=== PATIENT | female | born 1970 | race Caucasian/White ===

== ENCOUNTER 2022-08-24 08:47 | Inpatient (IN) | payer MEDICAID, MEDICARE ==
[~2022-08-24] VITALS: Ht 167.6 cm; Wt 48.1 kg
[2022-08-24] MEDS ORDERED: TDAP DIPH,PERTUSS,TET VAC/PF 0.5 ML DISP.SYRIN IM ONE ×2 (09:00→10:27)
[2022-08-24 09:31] LABS: MEAN CORPUSCULAR HEMOGLOBIN 29.8 uug (24.7-32.8); MEAN CORPUSCULAR VOLUME 90.8 fL (75.5-95.3); PLATELET COUNT (AUTO) 386 K/uL (179-408)
--- NOTE | 2022-08-24 10:00 | NUR ---
Jones not needed, pt can use bed kraft. Also no thermometer on foleys in-stock, so says jones is not necessary.
[2022-08-24 10:02] LABS: ALANINE AMINOTRANSFERASE 21 U/L (14-59); ALKALINE PHOSPHATASE 105 U/L (50-136); ASPARTATE AMINOTRANSFERASE 20 U/L (15-37); BILIRUBIN,TOTAL 0.3 mg/dL (0.2-1.0); TOTAL PROTEIN, SERUM 6.3 g/dL (6.4-8.2)
[2022-08-24 10:06] LABS: CARBON DIOXIDE 31 mmol/L (21-32); CHLORIDE 102 mmol/L (98-107); CREATININE 0.4 mg/dL (0.6-1.3); GLUCOSE 118 mg/dL (74-106); UREA NITROGEN, BLOOD 14 mg/dL (7-18)
--- NOTE | 2022-08-24 10:15 | NUR ---
pt was covered in her own feces and had very old bandage on right lower leg which had melded with pt's pants. Pt's clothes had to be cut off/thrown away and pt was cleaned. Bandage removed exposing several old wounds with geenish-john tint, other skin pale. Additionally, open/raw epidermal surface wounds exposed pt's right medial thigh, left medial thigh, and left medial leg near knee. ER MD and admitting MD aware.
[2022-08-24 10:21] LABS: POTASSIUM 2.5 mmol/L (3.5-5.1)
[2022-08-24 10:23] LABS: BILIRUBIN,DIRECT < 0.1 mg/dL (0.0-0.2)
[2022-08-24 10:41] LABS: *BILIRUBIN,URIN NEGATIVE (NEGATIVE); *BLOOD, URINE NEGATIVE (NEGATIVE); *COLOR,URINE YELLOW (YELLOW); *KETONES,URINE NEGATIVE (NEGATIVE); *UROBILINOGEN,URINE 0.2 E.U./dl (NORMAL); LEUKOCYTE ESTERASE ,URINE 1+ (NEGATIVE); NITRITE, URINE NEGATIVE (NEGATIVE); UGLUCOSE NEGATIVE (NEGATIVE)
[2022-08-24] MEDS ORDERED: POTASSIUM CHLORIDE 50 ML ONE ×2 (10:41→11:16)
[2022-08-24 11:11] LABS: *CLARITY,URINE SLIGHTLY CLOUDY (CLEAR)
[2022-08-24] MEDS: POTASSIUM CHLORIDE 50 ML IV SCH ×2 (11:15→19:51)
[2022-08-24] MEDS ORDERED: CEFTRIAXONE 1 G in IV DEXTROSE 5% 50 ML IV ONE (11:30)
--- NOTE | 2022-08-24 11:50 | NUR ---
Dafne Nichole placed on pt and turned on
[2022-08-24] MEDS ORDERED: HYDROCODONE/APAP 5-325MG TABLET PO PRN (12:45)
[2022-08-24] MEDS ORDERED: MAGNESIUM HYDROXIDE 30 ML LIQUID UDC PO PRN (12:45)
[2022-08-24] MEDS ORDERED: ENOXAPARIN SODIUM 40 MG/0.4 ML DISP.SYRIN SQ SCH (12:45)
[2022-08-24] MEDS ORDERED: ONDANSETRON 4 MG/2 ML VIAL IV PRN (12:45)
[2022-08-24 12:46] LABS: RBC,URINE 0-3 /HPF (0-3)
[2022-08-24 12:47] LABS: BACTERIA,URINE FEW /HPF (NONE SEEN); MUCUS,URINE FEW /LPF (0-FEW); SQUAMOUS EPITHELIAL CELL,UR FEW /HPF (NONE SEEN)
[2022-08-24] MEDS ORDERED: VANCOMYCIN IV 1,000 MG in IV DEXTROSE 5% 250 ML IV ONE (13:15)
[2022-08-24] MEDS ORDERED: CEFTRIAXONE /D5W 50ML IVPB **ER PYXIS IV ONE (13:52)
--- NOTE | 2022-08-24 15:35 | NUR ---
Finished infusing 2nd 10meq bag of K+. Started Rocephin.
[2022-08-24] MEDS ORDERED: VANCOMYCIN IV 200 ML ONE (15:42)
[2022-08-24] MEDS ORDERED: ENOXAPARIN SODIUM 40 MG/0.4 ML DISP.SYRIN SQ ONE (15:42)
--- NOTE | 2022-08-24 16:12 | NUR ---
infusion of rocephin finished.
[2022-08-24 16:17] LABS: CARBON DIOXIDE 32 mmol/L (21-32); CHLORIDE 106 mmol/L (98-107); CREATININE 0.4 mg/dL (0.6-1.3); GLUCOSE 57 mg/dL (74-106); POTASSIUM 2.9 mmol/L (3.5-5.1); UREA NITROGEN, BLOOD 10 mg/dL (7-18)
--- NOTE | 2022-08-24 18:36 | NUR ---
Contacted Dr. Alvarenga and informed him that rectal temp is now 98.4. Doctor ordered downgrade "admit to tele" and administer additional 20meq of Potassium (KCl) IV.
--- NOTE | 2022-08-24 21:05 | NUR ---
Report given to Mai SCHUMACHER Tele.
[2022-08-24 21:20] VITALS: BP 103/57
--- NOTE | 2022-08-24 21:30 | NUR ---
PATIENT RECEIVED VIA GURNEY FROM ER.PATIENT ALERT ,AWAKE AND ABLE TO GIVEN INFORMATION . ADMITTED PATIENT AND DATA GIVEN BY PATIENT . PATIENT CAME WITH MULTIPLE WOUNDS PHOTO TAKE AND PLACED IN CHART WOUND CARE CONSULT FOR CELLULITIS AND BUSINESS OFFICE SPECIALIST FOR HOMELESSNESS . ORIENTED PATIENT WITH ROOM AND CALL INNA ADVISED TO CALL FOR ASSISTANCE.
[2022-08-24] MEDS: ASCORBIC ACID 500 MG TABLET PO SCH (21:43)
--- NOTE | 2022-08-24 21:45 | NUR ---
PER SOCIAL SCIENCE PROFESSOR KCL WAS GIVEN IN ER
[2022-08-24] MEDS ORDERED: CEFEPIME HCL 1 G in IV DEXTROSE 5% 50 ML IV SCH (22:00)
--- NOTE | 2022-08-24 22:00 | NUR ---
PATIENT REQUESTED FOR SOMETHING TO EAT LABORATORY DIRECTOR GAVE PATIENT SANDWICH AND JUICE ABLE TO FEED SELF .
[2022-08-24] MEDS: IV LACTATED RINGERS SOLUTION 1,000 ML IV PRN (22:05)
[2022-08-24] MEDS ORDERED: CEFEPIME HCL 1 G VIAL ONE (23:45)
[2022-08-25] VITALS: BP 101/51
[2022-08-25] MEDS: POTASSIUM CHLORIDE 50 ML IV SCH (00:38)
[2022-08-25] MEDS ORDERED: VANCOMYCIN IV 750 MG in IV DEXTROSE 5% 250 ML IV SCH (03:00)
[2022-08-25 04:00] VITALS: BP 100/52
[2022-08-25] MEDS: ACETAMINOPHEN 325 MG TABLET PO PRN (04:26)
--- NOTE | 2022-08-25 04:28 | NUR ---
GIVEN PRN TYLENOL C/O TEMP 100.4 PATIENT TOLERATED MEDICATION WITH WATER.
[2022-08-25 06:49] LABS: HEMATOCRIT 27.2 % (31.2-41.9); MEAN CORPUSCULAR HEMOGLOBIN 29.7 uug (24.7-32.8); MEAN CORPUSCULAR VOLUME 90.2 fL (75.5-95.3); PLATELET COUNT (AUTO) 341 K/uL (179-408)
[2022-08-25 07:02] LABS: CREATININE 0.6 mg/dL (0.6-1.3); MAGNESIUM 1.4 mg/dL (1.8-2.4); PHOSPHOROUS 2.5 mg/dL (2.5-4.9); POTASSIUM 3.5 mmol/L (3.5-5.1)
[2022-08-25 07:05] LABS: BILIRUBIN,DIRECT 0.1 mg/dL (0.0-0.2); BILIRUBIN,TOTAL 0.4 mg/dL (0.2-1.0); TOTAL PROTEIN, SERUM 4.9 g/dL (6.4-8.2)
[2022-08-25] MEDS: ASCORBIC ACID 500 MG TABLET PO SCH ×2 (08:18→20:30)
[2022-08-25] MEDS: ZINC SULFATE 220 MG CAPSULE PO SCH (08:18)
[2022-08-25] MEDS: ENOXAPARIN SODIUM 40 MG/0.4 ML DISP.SYRIN SQ SCH (08:18)
[2022-08-25] MEDS: CEFEPIME HCL 1 G in IV DEXTROSE 5% 50 ML IV SCH ×3 (08:32→23:35)
[2022-08-25] MEDS ORDERED: PANTOPRAZOLE SODIUM 40 MG VIAL IV SCH (09:00)
--- NOTE | 2022-08-25 10:53 | NUR ---
Social Work consult was requested for a patient for homeless resources. Patient is a 52-year-old female admitted to the hospital for sepsis and cellulitis. Patient is alert and oriented X3. Patient presents with depressed mood and congruent affect. Patient appears confused and lethargic. Patient states she does not have a primary contact. Patient states she currently lives on her aunts property on [address], and [facility] provided the patient with homeless resources for [facility] [address] [place] [address] ([phone]) and [facility] [address] [place] [address] ([phone]). [facility] gave resources for [facility] [facility] [address] [address]. Patient refused to sign the homeless waiver, and a copy was placed in the chart. Patient denies a history of substance abuse, and there is no toxicology report. Patient denies a history of psychiatric diagnosis and patient denies suicidal or homicidal ideation. [facility] provided the patient with the mental health resource for [facility] [address] [place] [address] ([phone]). Patient states she is open to going to a care home facility at discharge and SW informed case management manager, Andres, charge nurse Elisabeth, and Dr. Alvarenga.
[2022-08-25] MEDS: VANCOMYCIN IV 750 MG in IV DEXTROSE 5% 250 ML IV SCH ×2 (11:16→20:30)
[2022-08-25 11:35] VITALS: BP 100/52
[2022-08-25] MEDS: risperiDONE 1 MG TABLET PO SCH ×2 (12:40→16:49)
[2022-08-25] MEDS: MAGNESIUM SULFATE/D5W 100 ML IV SCH ×4 (12:40→17:21)
--- NOTE | 2022-08-25 13:07 | NUR ---
WOUND CARE CONSULT: PT PRESENTS WITH MULTIPLE WOUNDS/SKIN ISSUES INCLUDING FOREHEAD ABRASION, BILATERAL THIGH WOUNDS, RT HEEL AND RT LOWER LEG PURULENT WOUNDS, PRESENT ON ADMISSION. SACRAL SCAR NOTED AND SOME AREAS OF DISCOLORATION TO UPPER/MIDBACK, PRESENT ON ADMISSION. DR NGUYỄN AND DR HILTON CALLED FOR SURGICAL AND DPM CONSULTS. DISCUSSED SKIN PROTECTION WITH NURSING STAFF. PT IS INCONTINENT. MD IN AGREEMENT WITH PLAN OF CARE.
--- NOTE | 2022-08-25 13:30 | NUR ---
Pt refused a purewick and said she better has a diaper. Reinforced pt education regarding diaper vs purewick and possible skin integrity issues to the patient, she verbalized understanding. Did patient's wound care as wound nurse Liz advised.
[2022-08-25 16:00] VITALS: BP 92/48
[2022-08-25 16:17] LABS: CREATININE 0.8 mg/dL (0.6-1.3); MAGNESIUM 1.9 mg/dL (1.8-2.4); POTASSIUM 3.4 mmol/L (3.5-5.1)
[2022-08-25] MEDS: BENZTROPINE MESYLATE 0.5 MG TABLET PO SCH (16:49)
--- NOTE | 2022-08-25 18:50 | NUR ---
Pt is alert and oriented x 3, had her dinner, no complains of pain, sleeping at the moment. Dressing on her lower extremities are intact, Iv saline lock is intact.
[2022-08-25 20:00] VITALS: BP 94/48
[2022-08-25] MEDS: IV LACTATED RINGERS SOLUTION 1,000 ML IV PRN (23:37)
[2022-08-26] VITALS: BP_SYST 101; BP_SYST 114; BP_DIAS 52; BP_DIAS 65
[2022-08-26] MEDS: VANCOMYCIN IV 750 MG in IV DEXTROSE 5% 250 ML IV SCH ×2 (02:59→21:06)
[2022-08-26 04:00] VITALS: BP 111/67
--- NOTE | 2022-08-26 05:40 | NUR ---
Report received at 1935 form ongoing nurse at patient bedside. Patient was seen seeping profoundly, but woke up later during shift took her medications and for ADL. Medications well tolerated, no adverse effects reported. She denied pain and any discomfort; she slept thorough the night without any complications. Will continue to monitor patient for safety.
[2022-08-26 06:57] LABS: HEMATOCRIT 25.7 % (31.2-41.9); MEAN CORPUSCULAR HEMOGLOBIN 29.4 uug (24.7-32.8); MEAN CORPUSCULAR VOLUME 90.3 fL (75.5-95.3); PLATELET COUNT (AUTO) 282 K/uL (179-408)
[2022-08-26 07:19] LABS: CREATININE 0.6 mg/dL (0.6-1.3); PHOSPHOROUS 3.1 mg/dL (2.5-4.9); POTASSIUM 3.3 mmol/L (3.5-5.1)
[2022-08-26] MEDS ORDERED: POTASSIUM CHLORIDE 20 MEQ TAB.PRT.SR PO ONE (09:00)
[2022-08-26] MEDS: PANTOPRAZOLE SODIUM 40 MG TABLET.DR PO SCH (10:01)
[2022-08-26] MEDS: ZINC SULFATE 220 MG CAPSULE PO SCH (10:01)
[2022-08-26] MEDS: BENZTROPINE MESYLATE 0.5 MG TABLET PO SCH ×2 (10:02→16:22)
[2022-08-26] MEDS: ASCORBIC ACID 500 MG TABLET PO SCH ×2 (10:02→20:05)
[2022-08-26] MEDS: risperiDONE 1 MG TABLET PO SCH ×4 (10:05→20:05)
[2022-08-26] MEDS: CEFEPIME HCL 1 G in IV DEXTROSE 5% 50 ML IV SCH ×2 (11:13→15:31)
[2022-08-26] MEDS: IV LACTATED RINGERS SOLUTION 1,000 ML IV PRN (11:18)
[2022-08-26] MEDS: ENOXAPARIN SODIUM 40 MG/0.4 ML DISP.SYRIN SQ SCH (11:30)
[2022-08-26 11:42] VITALS: BP 93/48
--- NOTE | 2022-08-26 12:41 | NUR ---
Report given to oncoming nurse. Patient is stable.
[2022-08-26] MEDS: SOD FERRIC GLUC COMPLX/SUCROSE 125 MG in IV NORMAL SALINE 100 ML IV SCH (13:53)
[2022-08-26] MEDS ORDERED: MAGNESIUM SULFATE/D5W 100 ML IV SCH (14:00)
[2022-08-26] MEDS: NEPRO (VANILLA) 237 ML CAN PO SCH (15:00)
--- NOTE | 2022-08-26 15:00 | NUR ---
Magnesium level is 2.1 Dr Alvarenga made aware magnesium order canceled. Doctor also aware of potassium level of 3.3.
[2022-08-26 16:00] VITALS: BP 92/50
[2022-08-26 16:13] LABS: CARBON DIOXIDE 31 mmol/L (21-32); CHLORIDE 107 mmol/L (98-107); CREATININE 0.5 mg/dL (0.6-1.3); GLUCOSE 122 mg/dL (74-106); POTASSIUM 3.6 mmol/L (3.5-5.1); UREA NITROGEN, BLOOD 10 mg/dL (7-18)
--- NOTE | 2022-08-26 19:33 | NUR ---
Received patient lying in bed. Asleep at this time. Appears comfortable. In no apparent distress. IV site on right AC intact and patent. IVF infusing. RLE with dressing intact, dry and clean. NSR on tele with HR of 84/min. Safety measure initiated and call light within reached.
[2022-08-26 20:09] VITALS: BP 91/47
--- NOTE | 2022-08-27 | NUR ---
Patient refused to have dressing remove to have picture taken on her wounds to right LE and garrick. inner thigh/groin area.
[2022-08-27] MEDS: CEFEPIME HCL 1 G in IV DEXTROSE 5% 50 ML IV SCH ×3 (00:07→15:44)
[2022-08-27 00:30] VITALS: BP 93/53
[2022-08-27] MEDS: ACETAMINOPHEN 325 MG TABLET PO PRN (00:43)
[2022-08-27 04:40] VITALS: BP 95/47
[2022-08-27] MEDS: IV LACTATED RINGERS SOLUTION 1,000 ML IV PRN (04:44)
--- NOTE | 2022-08-27 05:08 | NUR ---
Patient slept through out the night. In no acute distress. Galileo any pain or SOB. No adverse reaction noted from IV antibiotics. NSR on tele with Hr of 65/min.Dressing to both LE intact. Needs attended to and met. Safety measure maintained and call light within reached.
[2022-08-27 07:01] LABS: HEMATOCRIT 28.6 % (31.2-41.9); MEAN CORPUSCULAR HEMOGLOBIN 29.5 uug (24.7-32.8); MEAN CORPUSCULAR VOLUME 90.4 fL (75.5-95.3); PLATELET COUNT (AUTO) 274 K/uL (179-408)
[2022-08-27] MEDS: ASCORBIC ACID 500 MG TABLET PO SCH ×2 (08:24→20:21)
[2022-08-27] MEDS: risperiDONE 1 MG TABLET PO SCH ×4 (08:25→20:21)
[2022-08-27] MEDS: ZINC SULFATE 220 MG CAPSULE PO SCH (08:25)
[2022-08-27] MEDS: BENZTROPINE MESYLATE 0.5 MG TABLET PO SCH ×2 (08:25→17:28)
[2022-08-27] MEDS: PANTOPRAZOLE SODIUM 40 MG TABLET.DR PO SCH (08:25)
[2022-08-27] MEDS: ENOXAPARIN SODIUM 40 MG/0.4 ML DISP.SYRIN SQ SCH (08:27)
[2022-08-27] MEDS: NEPRO (VANILLA) 237 ML CAN PO SCH (08:27)
[2022-08-27] MEDS: VANCOMYCIN IV 750 MG in IV DEXTROSE 5% 250 ML IV SCH ×2 (09:49→23:11)
--- NOTE | 2022-08-27 10:00 | NUR ---
wound treatment on both lower extremities done as ordered
[2022-08-27 11:50] LABS: POTASSIUM 3.9 mmol/L (3.5-5.1)
[2022-08-27 11:51] LABS: CREATININE 0.6 mg/dL (0.6-1.3)
[2022-08-27 11:52] LABS: MAGNESIUM 1.9 mg/dL (1.8-2.4); PHOSPHOROUS 3.2 mg/dL (2.5-4.9)
[2022-08-27 11:58] VITALS: BP 90/46
[2022-08-27 13:29] LABS: *AMPHETAMINE, URINE NEGATIVE (NEGATIVE)
[2022-08-27 13:30] LABS: *CANNABINOID, URINE NEGATIVE (NEGATIVE); *COCCAINE, URINE NEGATIVE (NEGATIVE); *PHENCYCLIDINE SCREEN,URINE NEGATIVE (NEGATIVE)
[2022-08-27] MEDS: SOD FERRIC GLUC COMPLX/SUCROSE 125 MG in IV NORMAL SALINE 100 ML IV SCH (14:03)
[2022-08-27 15:49] VITALS: BP 89/45
[2022-08-27 17:12] LABS: CARBON DIOXIDE 32 mmol/L (21-32); CHLORIDE 106 mmol/L (98-107); CREATININE 0.4 mg/dL (0.6-1.3); GLUCOSE 126 mg/dL (74-106); MAGNESIUM 1.6 mg/dL (1.8-2.4); POTASSIUM 3.6 mmol/L (3.5-5.1); UREA NITROGEN, BLOOD 10 mg/dL (7-18)
[2022-08-27 17:30] VITALS: BP 94/46
--- NOTE | 2022-08-27 18:54 | NUR ---
no distress noted, resting in bed, all needs attended and met, call light within reach
--- NOTE | 2022-08-27 19:45 | NUR ---
Received patient lying in bed. Sleeping, appears comfortable. In no acute distress. IV site on right hand intact and patent. IVF infusing. BLE dressing intact, dry and clean. NSR on tele with HR of 97/min. Safety measure initiated and call light within reached.
[2022-08-27 20:00] VITALS: BP 99/51
[2022-08-27] MEDS: MAGNESIUM SULFATE/D5W 100 ML IV SCH ×2 (20:56→22:10)
[2022-08-28] VITALS: BP 94/48
[2022-08-28] MEDS: CEFEPIME HCL 1 G in IV DEXTROSE 5% 50 ML IV SCH ×3 (00:05→17:04)
[2022-08-28] MEDS: IV LACTATED RINGERS SOLUTION 1,000 ML IV PRN ×2 (01:09→21:04)
[2022-08-28 04:07] VITALS: BP 93/54
--- NOTE | 2022-08-28 05:13 | NUR ---
Slept well during the night. In no acute distress. Denies any pain or SOB. No adverse reaction noted from IV antibiotic. NSR on tele with HR of 79/min. Needs attended to and met. Safety measure maintained and call light within reached.
[2022-08-28] MEDS: NEPRO (VANILLA) 237 ML CAN PO SCH (09:06)
[2022-08-28] MEDS: risperiDONE 1 MG TABLET PO SCH ×4 (09:07→20:48)
[2022-08-28] MEDS: PANTOPRAZOLE SODIUM 40 MG TABLET.DR PO SCH (09:07)
[2022-08-28] MEDS: BENZTROPINE MESYLATE 0.5 MG TABLET PO SCH ×2 (09:08→17:07)
[2022-08-28] MEDS: ASCORBIC ACID 500 MG TABLET PO SCH ×2 (09:08→20:48)
[2022-08-28] MEDS: REMEDY ESSENTIAL ZINC PASTE 113 GM TP PRN ×4 (09:13→09:24)
[2022-08-28 09:22] LABS: HEMATOCRIT 27.8 % (31.2-41.9); MEAN CORPUSCULAR HEMOGLOBIN 29.6 uug (24.7-32.8); MEAN CORPUSCULAR VOLUME 91.1 fL (75.5-95.3); PLATELET COUNT (AUTO) 273 K/uL (179-408)
[2022-08-28 09:56] LABS: CARBON DIOXIDE 33 mmol/L (21-32); CHLORIDE 106 mmol/L (98-107); CREATININE 0.4 mg/dL (0.6-1.3); GLUCOSE 76 mg/dL (74-106); POTASSIUM 3.5 mmol/L (3.5-5.1); UREA NITROGEN, BLOOD 9 mg/dL (7-18)
[2022-08-28 10:02] LABS: PHOSPHOROUS 2.8 mg/dL (2.5-4.9); VANCOMYCIN,TROUGH 11.9 ug/mL (12.0-20.0)
[2022-08-28 10:58] VITALS: BP 108/45
[2022-08-28] MEDS: ZINC SULFATE 220 MG CAPSULE PO SCH (11:11)
[2022-08-28] MEDS: VANCOMYCIN IV 750 MG in IV DEXTROSE 5% 250 ML IV SCH ×2 (11:31→21:02)
[2022-08-28] MEDS: ENOXAPARIN SODIUM 40 MG/0.4 ML DISP.SYRIN SQ SCH (11:31)
[2022-08-28] MEDS: SOD FERRIC GLUC COMPLX/SUCROSE 125 MG in IV NORMAL SALINE 100 ML IV SCH (14:00)
[2022-08-28 16:23] VITALS: BP 101/54
[2022-08-28 20:00] VITALS: BP 95/49
[2022-08-29] VITALS: BP 93/48
[2022-08-29] MEDS: CEFEPIME HCL 1 G in IV DEXTROSE 5% 50 ML IV SCH ×3 (00:20→16:00)
[2022-08-29 03:50] VITALS: BP 96/52
[2022-08-29 07:39] LABS: CARBON DIOXIDE 33 mmol/L (21-32); CHLORIDE 105 mmol/L (98-107); CREATININE 0.5 mg/dL (0.6-1.3); GLUCOSE 79 mg/dL (74-106); MAGNESIUM 1.8 mg/dL (1.8-2.4); PHOSPHOROUS 2.6 mg/dL (2.5-4.9)
[2022-08-29 07:51] LABS: HEMATOCRIT 27.5 % (31.2-41.9); MEAN CORPUSCULAR HEMOGLOBIN 29.9 uug (24.7-32.8); MEAN CORPUSCULAR VOLUME 90.9 fL (75.5-95.3); PLATELET COUNT (AUTO) 289 K/uL (179-408)
[2022-08-29] MEDS: PANTOPRAZOLE SODIUM 40 MG TABLET.DR PO SCH (09:30)
[2022-08-29] MEDS: ASCORBIC ACID 500 MG TABLET PO SCH (09:30)
[2022-08-29] MEDS: ZINC SULFATE 220 MG CAPSULE PO SCH (09:30)
[2022-08-29] MEDS: BENZTROPINE MESYLATE 0.5 MG TABLET PO SCH ×2 (09:30→17:00)
[2022-08-29] MEDS: risperiDONE 1 MG TABLET PO SCH ×3 (09:30→17:00)
[2022-08-29] MEDS: ENOXAPARIN SODIUM 40 MG/0.4 ML DISP.SYRIN SQ SCH (09:46)
[2022-08-29] MEDS: NEPRO (VANILLA) 237 ML CAN PO SCH (09:47)
[2022-08-29 09:50] LABS: UREA NITROGEN, BLOOD 11 mg/dL (7-18)
--- NOTE | 2022-08-29 10:17 | NUR ---
SW consult for discharge planning. Patient alert and oriented X3 and presents with euthymic mood and congruent affect. SW provided the patient with shoes, sweater, pants and a TAP card. Patient was appreciative of the resources. SW informed immigration case worker, Andres and charge nurse, Elisabeth.
[2022-08-29] MEDS: VANCOMYCIN IV 750 MG in IV DEXTROSE 5% 250 ML IV SCH (11:00)
[2022-08-29 11:05] VITALS: BP 100/54
[2022-08-29] MEDS ORDERED: CIPR-262 PO (11:36)
[2022-08-29] MEDS ORDERED: DOXY-326 PO (11:36)
--- NOTE | 2022-08-29 17:45 | NUR ---
pt is discharged. pt refused referrals; prefer to go back to streets. wound care supplies provided. Please refer to CM notes
== END 2022-08-29 18:15 | disposition home or self-care (01) | DRG 383 ==
LOC: ER 08:47 → TELE3 21:08 → MEDSURG3 08-29 08:00
PROVIDERS: ADMIT Nurse Practitioner Acute Care; ATTEND Nurse Practitioner Acute Care
DX: L03.115 Cellulitis of right lower limb (principal); E43 Unspecified severe protein-calorie malnutrition; T68.XXXA Hypothermia, initial encounter; F25.0 Schizoaffective disorder, bipolar type; D64.9 Anemia, unspecified; S00.03XA Contusion of scalp, initial encounter; E87.6 Hypokalemia; N39.0 Urinary tract infection, site not specified; L03.116 Cellulitis of left lower limb; B96.89 Other specified bacterial agents as the cause of diseases classified elsewhere; Z59.00 Homelessness unspecified; Z88.0 Allergy status to penicillin; W19.XXXA Unspecified fall, initial encounter; Y93.89 Activity, other specified; Y92.521 Bus station as the place of occurrence of the external cause; S70.312A Abrasion, left thigh, initial encounter; S70.311A Abrasion, right thigh, initial encounter; Y92.89 Other specified places as the place of occurrence of the external cause; Z20.822 Contact with and (suspected) exposure to COVID-19; Z91.199 Patient's noncompliance with other medical treatment and regimen due to unspecified reason; Z68.1 Body mass index [BMI] 19.9 or less, adult
CPT/HCPCS: 36415; 70450; 71045; 72170; 73700; 83550; 83605; 83690; 83735; 83970; 84100; 84443; 84481; 84484; 84703; 85025; 85651; 86140; 87040; 90715; 93005; A4663; A6213; C9113; G0378; J0692; J0696; J1650; J2916; J3370; J3475; J3480; J7040; J7050; J7120